=== PATIENT | male | born 1950 | race Caucasian/White ===

== ENCOUNTER 2019-01-23 09:20 | Day surgery (SDC) | payer MEDICARE, BC ==
[2019-01-22 14:20] LABS: ALBUMIN 3.1 g/dL (3.4-5.0); ANION GAP 6 mmol/L (5-15); CALCIUM 9.1 mg/dL (8.5-10.1); CHLORIDE 108 mmol/L (98-107)
[2019-01-22 14:25] LABS: ALANINE AMINOTRANSFERASE 21 U/L (12-78); ALKALINE PHOSPHATASE 91 U/L (45-117); BILIRUBIN,TOTAL 0.4 mg/dL (0.2-1.0); CREATININE 0.89 mg/dL (0.7-1.3); TOTAL PROTEIN 8.2 g/dL (6.4-8.2)
[~2019-01-23] VITALS: Ht 179.1 cm; Wt 87.7 kg
[~2019-01-23 09:20] MED LIST: ASCO100019 PO; FLAX10004 PO; GLUC1TAB35 PO; LISI-167 PO; LYSI500T8 PO; MELA1TAB8 PO; MULT-717 PO; MV-M1TAB16 PO; VITA1TAB19 PO
[2019-01-23] MEDS ORDERED: LACTATED RINGERS 1,000 ML IV SCH (09:55)
[2019-01-23 09:58] VITALS: BP 143/93
[2019-01-23] MEDS ORDERED: MIDAZOLAM 1 MG/ML, 2ML ONE (10:07)
[2019-01-23] MEDS ORDERED: FENTANYL PF 250 MCG/5ML ONE (10:08)
[2019-01-23] MEDS ORDERED: ONDANSETRON 2MG/ML, 2ML ONE (10:09)
[2019-01-23] MEDS ORDERED: ROCURONIUM 10MG/ML,5ML ONE (10:09)
[2019-01-23] MEDS ORDERED: DEXAMETHASONE 4 MG/ML, 1ML ONE (10:09)
[2019-01-23] MEDS ORDERED: CEFAZOLIN 1,000 MG ONE ×2 (10:09)
[2019-01-23] MEDS ORDERED: PROPOFOL 10 MG/ML, 20ML ONE (10:09)
[2019-01-23] MEDS ORDERED: EPINEPHRINE 1 MG/ML, 1ML ONE (11:16)
[2019-01-23] MEDS ORDERED: BUPIVACAINE/PF 0.5% ONE (11:16)
[2019-01-23] MEDS ORDERED: METOCLOPRAMIDE 5 MG/ML, 2ML IV PRN (12:00)
[2019-01-23] MEDS ORDERED: MEPERIDINE/PF 25MG/ML,1ML IVPush PRN (12:00)
[2019-01-23] MEDS ORDERED: LORazepam 2 MG/ML, 1ML IVPush PRN (12:00)
[2019-01-23] MEDS ORDERED: OXYcodone 5 MG/5 ML ORAL.SOL UDC PO PRN ×2 (12:00→12:30)
[2019-01-23] MEDS ORDERED: ONDANSETRON 2MG/ML, 2ML IV PRN (12:00)
[2019-01-23] MEDS ORDERED: HYDROmorphone 2 MG/ML, 1ML IVPush PRN (12:00)
[2019-01-23] MEDS ORDERED: hydrALAzine 20 MG/ML, 1ML IV PRN (12:00)
[2019-01-23] MEDS ORDERED: ACETAMINOPHEN 325 MG TABLET PO PRN (12:00)
[2019-01-23] MEDS ORDERED: LABETALOL 5MG/ML, 20ML IV PRN (12:00)
[2019-01-23] MEDS ORDERED: SUGAMMADEX 200 MG/2 ML IVPush ONE (12:17)
[2019-01-23] MEDS ORDERED: FENTANYL PF 100 MCG/2ML ONE (12:31)
[2019-01-23] MEDS ORDERED: OXYcodone 5 MG/5 ML ORAL.SOL UDC ONE (12:31)
[2019-01-23] MEDS: FENTANYL PF 100 MCG/2ML IV PRN ×2 (12:36→13:12)
== END 2019-01-23 15:20 | disposition home or self-care (01) ==
LOC: OUT 09:20
PROVIDERS: ATTEND Surgery
DX: K40.91 Unilateral inguinal hernia, without obstruction or gangrene, recurrent (principal); D17.6 Benign lipomatous neoplasm of spermatic cord; I10 Essential (primary) hypertension; F19.90 Other psychoactive substance use, unspecified, uncomplicated; F15.90 Other stimulant use, unspecified, uncomplicated; Z98.890 Other specified postprocedural states; Z72.89 Other problems related to lifestyle
CPT/HCPCS: 36415; 49651; 80053; 93005; C1781; J0171; J0690; J1100; J2250; J2405; J2704; J3010